=== PATIENT | male | born 1930 | race Caucasian/White ===

== ENCOUNTER 2016-04-01 10:35 | Emergency (ER) | payer MEDICARE, OTHER ==
--- NOTE | 2016-04-01 12:52 | RAD ---
Indication: Mechanical fall, dementia. CT of the brain was performed without IV contrast. Comparison is made with previous exam dated 09/19/2015. Ventricular structures are midline. No midline shift is noted. Central and cortical atrophy is noted. There is no evidence of intracranial bleed hemorrhage. Small calcific density just adjacent to the right sylvian fissure is consistent with a small meningioma. Calcified and measures approximately 7 mm. No other high or low density lesions are identified. There is opacification of the left maxillary sinus. Mastoid air cells are otherwise unremarkable. Overall no changes noted since 09/19/2015. IMPRESSION: No intracranial hemorrhage is noted. Likely meningioma in the right temporal lobe just adjacent to the sylvian fissure which is unchanged measuring up to 7 mm. No changes noted since 02/12/2014.
--- NOTE | 2016-04-01 12:56 | RAD ---
Indication: Fall, neck injury. CT of the cervical spine was obtained in the axial plane. Sagittal and coronal reconstructed images were obtained. The skull base demonstrates mastoid air cells to be well aerated. C1 ring is intact. The vertebral bodies appear normal in height. At C2-C3 minimal broad-based protrusion flattens the thecal sac. No central foraminal stenosis is noted. At C3-4 spondylitic ridge is noted. Left uncovertebral hypertrophy narrows the left foramen. Facet arthropathy is noted. At C4-5 spondylitic ridge with broad-based protrusion, right uncovertebral joint hypertrophy and right facet arthropathy throughout the right foramen. At C5-6 spondylitic ridge flattens the thecal sac. No central foraminal stenosis is noted. At C6-7 and C7-T1 degenerative disc disease without fracture noted. The remainder of the thoracic vertebra were visualized is unremarkable. Oblique IMPRESSION: DEGENERATIVE DISC DISEASE AT MULTIPLE LEVELS WITHOUT EVIDENCE OF FRACTURE. OVERALL NO CHANGES NOTED SINCE PREVIOUS EXAM.
[2016-04-01 13:10] LABS: Hematocrit 41 % (42-52); Hemoglobin 13.7 g/dl (14.0-18.0); Mean Corpuscular HGB Conc 33 g/dl (31-36); Mean Corpuscular Hemoglobin 29 pg (27-31); Mean Corpuscular Volume 86 fL (80-94); Mean Platelet Volume 8 um3 (7.4-10.4); Red Blood Count 4.81 10^6/ul (4.0-5.4); Red Cell Distribution Width 15 % (10.5-15); White Blood Count 8.2 10^3/ul (3.5-10.8)
--- NOTE | 2016-04-01 13:21 | RAD ---
INDICATION: Mechanical fall. Dementia. COMPARISON: Chest x-ray September 19, 2015 TECHNIQUE: An AP portable view obtained at 1305 hours is submitted. FINDINGS: Bones/Soft Tissues: There are no acute bony findings. There are old right-sided rib fractures Cardiomediastinal: The cardiomediastinal silhouette is normal. Lungs: There are no infiltrates. Pleura: There are no pleural effusions. There is minimal chronic blunting of the left costophrenic angle Other: None IMPRESSION: NO ACTIVE DISEASE.
[2016-04-01 13:31] LABS: Albumin 3.8 g/dL (3.2-5.2); BUN/Creatinine Ratio 21.6 (8-20); C Reactive Protein 23.99 mg/L (< 5.00); Calcium 9.4 mg/dL (8.6-10.3); EGFR Non-African American 59.8 (>60); Globulin 2.9 g/dL (2-4); Magnesium 2.1 mg/dL (1.9-2.7); Potassium 4.1 mmol/L (3.5-5.0); Total Bilirubin 0.8 mg/dL (0.2-1.0); Total Protein 6.7 g/dL (6.4-8.9)
--- NOTE | 2016-04-01 15:43 | ED ---
Complex/Multi-Sys Presentation - HPI Summary HPI Summary: Patient is an 85yo non-verbal male with dementia from an assisted living facility arrives with physical therapy assistant instructor stating CC of fall from bed. No one witness the fall, but staff immediately were present after hearing a "thud." Patient was alert and awake when techs arrived. They mention he was at his baseline of confusion and dementia and did not complain of pain. However, on further inspection, he was noted to have abrasions on L and R forearms and small contusion over L hip. Otherwise gait normal. Techs then began to notice he was more sleepy than usual and brought him to ED for further evaluation. - History Of Current Complaint Chief Complaint: EDGeneral Time Seen by Provider: 04/01/16 10:45 Hx Obtained From: Family/Chief Resource Officer Hx From Patient Unobtainable Due To: Dementia Onset/Duration: Sudden Onset Timing: Constant Severity Currently: Mild Severity Initially: Mild Associated Signs And Symptoms: Positive: Recent Trauma - fall from bed - Allergies/Home Medications Allergies/Adverse Reactions: Allergies Allergy/AdvReac Type Severity Reaction Status Date / Time Donepezil [From Aricept] Allergy Unknown Verified 10/06/15 16:13 Reaction Details Tramadol Allergy Unknown Verified 10/06/15 16:13 Reaction Details Home Medications: Home Medications HYDROcodone/ACETAMIN 5-325 MG* [[place] 5-325 TAB*] 1 tab PO Q6H PRN MDD 4 tabs [History Confirmed 04/01/16] Melatonin (NF) [Meladox] 5 mg PO BEDTIME 04/01/16 [History Confirmed 04/01/16] QUEtiapine TAB* [SEROquel TAB*] 25 mg PO BID PRN 04/01/16 [History Confirmed ] QUEtiapine TAB* [SEROquel TAB*] 100 mg PO BID 04/01/16 [History Confirmed ] PMH/Surg Hx/FS Hx/Imm Hx Previously Healthy: Yes Endocrine/Hematology History: Reports: Hx Anticoagulant Therapy Denies: Hx Diabetes Cardiovascular History: Reports: Hx Hypertension, Other Cardiovascular Problems/ Disorders - Hyperlipidemia, pulmonic insuff. aortic insuff. systemic arterial HTN Denies: Hx Pacemaker/ICD Respiratory History: Reports: Hx Pulmonary Embolism Denies: Hx Asthma GI History: Reports: Hx Diverticulosis, Other GI Disorders - Ileostomy 1951, Rectum removed 1972, repeat ileostomy 2009 History: Reports: Other Problems/Disorders - Renal insuff. 2009 Sensory History: Reports: Hx Hearing Aid - DOESNT WEAR Neurological History: Reports: Hx Dementia - According to GABRIELLE Psychiatric History: Denies: Hx Panic Disorder - Surgical History Surgery Procedure, Year, and Place: ILEOSTOMY 60 YRS/REPAIR AND REPLACED/ SEVERAL BOWEL SURGERIES. 1954 COLON REMOVED, 1972 RECTUM REMOVED.SON WILL ATTEND FOR EXAM,PLEASE USE QUIET SCAN WHERE APPROPRIATE Hx Anesthesia Reactions: No - GABRIELLE reports paradoxal medication "issues" with surgery - Immunization History Date of Tetanus Vaccine: Up to date Date of Influenza Vaccine: Fall 2013 Infectious Disease History: Denies: Traveled Outside the [place] in Last 30 Days - Family History Known Family History: Positive: Hypertension - Social History Alcohol Use: None Substance Use Type: Reports: None Smoking Status (MU): Former Smoker Have You Smoked in the Last Year: No Review of Systems - ROS Summary Review of Systems Summary: Unable to obtain ROS d/t patient dementia/non-verbal. All Other Systems Reviewed And Are Negative: Yes Physical Exam Triage Information Reviewed: Yes Vital Signs On Initial Exam: Initial Vitals Temp Pulse Resp BP Pulse Ox 97.6 F 54 16 124/64 96 04/01/16 10:47 04/01/16 10:47 04/01/16 10:47 04/01/16 10:47 04/01/16 10:47 Vital Signs Reviewed: Yes Completion Of Physical Exam Limited Due To: Dementia Appearance: Positive: Well-Appearing Skin: Positive: Warm, Dry, Other - contusion over L hip measuring 2 cm; abrasion over l forearm measuring 3 cm, abrasion over R forearm measuring 2 cm Head/Face: Positive: Normal Head/Face Inspection Eyes: Positive: Normal, EOMI, KALIN, Conjunctiva Inflammed Neck: Positive: Supple, Nontender Respiratory/Lung Sounds: Positive: Clear to Auscultation, Breath Sounds Present Cardiovascular: Positive: Normal Abdomen Description: Positive: Nontender, Other: - ostomy bag Bowel Sounds: Positive: Present Musculoskeletal: Positive: Normal, Strength/ROM Intact Neurological: Positive: Normal, Sensory/Motor Intact, Facial Symmetry Psychiatric: Positive: Patient Uncooperative for Exam - d/t patient dementia/non -verbal - Maureen Coma Scale Coma Scale Total: 11 Diagnostics - Vital Signs Vital Signs Temp Pulse Resp BP Pulse Ox 04/01/16 13:00 25 13 74 04/01/16 12:00 13 128/58 04/01/16 11:30 12 132/63 04/01/16 11:00 51 13 121/57 97 04/01/16 10:53 48 15 96 04/01/16 10:52 124/64 04/01/16 10:47 97.6 F 54 16 124/64 96 - Laboratory Lab Results: Lab Results 04/01/16 04/01/16 04/01/16 Range/Units 12:57 12:57 12:57 WBC 8.2 (3.5-10.8) 10^3/ul RBC 4.81 (4.0-5.4) 10^6/ul Hgb 13.7 L (14.0-18.0) g/dl Hct 41 L (42-52) % MCV 86 (80-94) fL MCH 29 (27-31) pg MCHC 33 (31-36) g/dl RDW 15 (10.5-15) % Plt Count 102 L (150-450) 10^3/ul MPV 8 (7.4-10.4) um3 Neut % (Auto) 75.3 (38-83) % Lymph % (Auto) 14.5 L (25-47) % Cavalier % (Auto) 7.2 (1-9) % Eos % (Auto) 2.6 (0-6) % Baso % (Auto) 0.4 (0-2) % Absolute Neuts (auto) 6.2 (1.5-7.7) 10^3/ul Absolute Lymphs (auto) 1.2 (1.0-4.8) 10^3/ul Absolute Monos (auto) 0.6 (0-0.8) 10^3/ul Absolute Eos (auto) 0.2 (0-0.6) 10^3/ul Absolute Basos (auto) 0 (0-0.2) 10^3/ul Absolute Nucleated RBC 0.02 10^3/ul Nucleated RBC % 0.2 Sodium 139 (133-145) mmol/L Potassium 4.1 (3.5-5.0) mmol/L Chloride 111 (101-111) mmol/L Carbon Dioxide 26 (22-32) mmol/L Anion Gap 2 (2-11) mmol/L BUN 25 H (6-24) mg/dL Creatinine 1.16 (0.67-1.17) mg/dL Est GFR ( Amer) 77.0 (>60) Est GFR (Non-Af Amer) 59.8 (>60) BUN/Creatinine Ratio 21.6 H (8-20) Glucose 92 (70-100) mg/dL Lactic Acid 0.9 (0.5-2.0) mmol/L Calcium 9.4 (8.6-10.3) mg/dL Magnesium 2.1 (1.9-2.7) mg/dL Total Bilirubin 0.80 (0.2-1.0) mg/dL AST 23 (13-39) U/L ALT 14 (7-52) U/L Alkaline Phosphatase 59 (34-104) U/L Total Creatine Kinase 117 (10-223) U/L C-Reactive Protein 23.99 H (< 5.00) mg/L Total Protein 6.7 (6.4-8.9) g/dL Albumin 3.8 (3.2-5.2) g/dL Globulin 2.9 (2-4) g/dL Albumin/Globulin Ratio 1.3 (1-3) Lipase 40 (11.0-82.0) U/L Result Diagrams: 04/01/16 12:57 04/01/16 12:57 Lab Statement: Any lab studies that have been ordered have been reviewed, and results considered in the medical decision making process. Complex Multi-Symp Course/Dx Course Of Treatment: Patient sent to CT spine, CT head, CXR and labs obtained. All WNL. Patient examined with limited communication and unable to assess fully based on non-verbal/dementia. Patient will be discharged back to assisted living with return precautions. - Diagnoses Differential Diagnoses/HQI/PQRI: CVA, Urinary Tract Infection Provider Diagnoses: Accident due to mechanical fall without injury Discharge - Discharge Plan Condition: Stable Disposition: HOME Referrals: Bessie Potts MD [Primary Care Provider] - Additional Instructions: If patient is exhibiting any worsening pain, develops fever, or has an unstable gait worse than his baseline, come back to ED. Images - Images Full Body (No Head): 1 - abrasion 2 - abrasion 3 - contusion
[2016-04-01 16:28] VITALS: BP 147/54
== END 2016-04-01 15:03 | disposition home or self-care (01) ==
LOC: ED 10:35
DX: S50.812A Abrasion of left forearm, initial encounter (principal); S50.811A Abrasion of right forearm, initial encounter; S70.02XA Contusion of left hip, initial encounter; W06.XXXA Fall from bed, initial encounter; Y92.199 Unspecified place in other specified residential institution as the place of occurrence of the external cause; F03.90 Unspecified dementia, unspecified severity, without behavioral disturbance, psychotic disturbance, mood disturbance, and anxiety; I10 Essential (primary) hypertension; E78.5 Hyperlipidemia, unspecified; Z86.711 Personal history of pulmonary embolism; Z87.891 Personal history of nicotine dependence; Z79.899 Other long term (current) drug therapy; M50.30 Other cervical disc degeneration, unspecified cervical region; Z88.8 Allergy status to other drugs, medicaments and biological substances
CPT/HCPCS: 36415; 70450; 71010; 72125; 80053; 82550; 83605; 83690; 83735; 85025; 86140; 99282

== ENCOUNTER 2016-04-09 07:44 | Emergency (ER) | payer MEDICARE, OTHER ==
[2016-04-09 08:05] VITALS: BP 127/74
--- NOTE | 2016-04-09 08:31 | ED ---
Adult Trauma - HPI Summary HPI Summary: Patient SUKHI from nursing facility after an unwitnessed fall. Per caregivers, patient at baseline and without complaints. Patient has dementia and non- verbal. Patient without bruising, pinpoint tenderness or obvious lesions or deformities. - History of Current Complaint Chief Complaint: EDHeadInjury Stated Complaint: FALL Time Seen by Provider: 04/09/16 08:11 Hx Obtained From: Family/Mechanic Senior, EMS Hx From Patient Unobtainable Due To: Dementia Mechanism of Injury: Fall Ambulatory at the Scene: Yes Loss of Consciousness: unsure Onset/Duration: Started Minutes Ago Onset Severity: Mild Current Severity: Mild Pain Intensity: 0 Pain Scale Used: Adult Non Verbal Similar Episode/Dx as: previous falls - Allergy/Home Medications Allergies/Adverse Reactions: Allergies Allergy/AdvReac Type Severity Reaction Status Date / Time Donepezil [From Aricept] Allergy Unknown Verified 10/06/15 16:13 Reaction Details Tramadol Allergy Unknown Verified 10/06/15 16:13 Reaction Details PMH/Surg Hx/FS Hx/Imm Hx Previously Healthy: Yes - dementia at baseline Endocrine/Hematology History: Reports: Hx Anticoagulant Therapy Denies: Hx Diabetes Cardiovascular History: Reports: Hx Hypertension, Other Cardiovascular Problems/ Disorders - Hyperlipidemia, pulmonic insuff. aortic insuff. systemic arterial HTN Denies: Hx Pacemaker/ICD Respiratory History: Reports: Hx Pulmonary Embolism Denies: Hx Asthma GI History: Reports: Hx Diverticulosis, Other GI Disorders - Ileostomy 1951, Rectum removed 1972, repeat ileostomy 2009 History: Reports: Other Problems/Disorders - Renal insuff. 2009 Sensory History: Reports: Hx Hearing Aid - DOESNT WEAR Neurological History: Reports: Hx Dementia - According to GABRIELLE Psychiatric History: Denies: Hx Panic Disorder - Surgical History Surgery Procedure, Year, and Place: ILEOSTOMY 60 YRS/REPAIR AND REPLACED/ SEVERAL BOWEL SURGERIES. 1954 COLON REMOVED, 1972 RECTUM REMOVED.SON WILL ATTEND FOR EXAM,PLEASE USE QUIET SCAN WHERE APPROPRIATE Hx Anesthesia Reactions: No - GABRIELLE reports paradoxal medication "issues" with surgery - Immunization History Date of Tetanus Vaccine: Up to date Date of Influenza Vaccine: Fall 2013 Infectious Disease History: Denies: Traveled Outside the [place] in Last 30 Days - Family History Known Family History: Positive: Hypertension - Social History Occupation: Disabled [facility] Alcohol Use: None Substance Use Type: Reports: None Smoking Status (MU): Former Smoker Have You Smoked in the Last Year: No Review of Systems - ROS Summary Review of Systems Summary: ROS unable to complete d/t non-verbal status. All Other Systems Reviewed And Are Negative: Yes Physical Exam Triage Information Reviewed: Yes Vital Signs On Initial Exam: Initial Vitals Temp Pulse Resp BP Pulse Ox 98.6 F 75 15 127/74 2 04/09/16 08:00 04/09/16 08:00 04/09/16 08:00 04/09/16 08:00 04/09/16 08:00 Vital Signs Reviewed: Yes Completion Of Physical Exam Limited Due To: Dementia Appearance: Positive: Well-Appearing, No Pain Distress Skin: Positive: Warm, Dry Head/Face: Positive: Normal Head/Face Inspection Eyes: Positive: Normal, EOMI, Conjunctiva Inflammed ENT: Positive: Pharynx normal, TMs normal Neck: Positive: Supple, Nontender, No Lymphadenopathy Respiratory/Lung Sounds: Positive: Breath Sounds Present Cardiovascular: Positive: Normal Abdomen Description: Positive: Nontender Bowel Sounds: Positive: Present Musculoskeletal: Positive: Normal, Strength/ROM Intact Neurological: Positive: Normal, Other - not oriented to time, place or person - dementia AVPU Assessment: Alert Diagnostics - Vital Signs Vital Signs Temp Pulse Resp BP Pulse Ox 04/09/16 08:00 98.6 F 75 15 127/74 2 - Laboratory Lab Statement: Any lab studies that have been ordered have been reviewed, and results considered in the medical decision making process. Adult Trauma Course/Dx - Course Course Of Treatment: physical examination performed to attempt to recreate locations of pain d/t dementia and non-verbal status. patient at baseline per senior care. CT scan of head shows no acute changes. no lesions, patient not responding negatively to physical exam. neck ROM intact. neck flexion and extension OK. extremity ROM intact. Discussed findings with children of patient. Both agree patient at baseline. Transported back to senior care via ambulance - Diagnoses Differential Diagnosis/HQI/PQRI: Positive: Fracture, Hematoma(s) Provider Diagnoses: Unwitnessed fall Discharge - Discharge Plan Condition: Stable Disposition: HOME Patient Education Materials: Fall Prevention (ED) Referrals: Bessie Potts MD [Primary Care Provider] - Additional Instructions: Return to activities as normal. Nothing noted on CT scan. If worsening pain or symptoms develop, please come back to ED.
--- NOTE | 2016-04-09 08:49 | RAD ---
HISTORY: unwitnessed fall COMPARISONS: April 01, 2016 TECHNIQUE: Multiple contiguous axial CT scans were obtained of the head without intravenous contrast. FINDINGS: HEMORRHAGE/INFARCT: There is no hemorrhage or acute infarct. MASSES/SHIFT: There is no mass or shift. EXTRA-AXIAL SPACES: Again noted is a small extra-axial high attenuation lesion suggestive of small meningioma along the right frontal lobe. This is stable. SULCI AND VENTRICLES: There is diffuse and proportional enlargement of the sulci and ventricles. CEREBRUM: There are no focal parenchymal abnormalities. BRAINSTEM: There are no focal parenchymal abnormalities. CEREBELLUM: There are no focal parenchymal abnormalities. VESSELS: The vessels are grossly normal. PARANASAL SINUSES: There is opacification of left maxillary sinus with osteitis of the sternal bone ORBITS: The orbits are unremarkable. BONES AND SOFT TISSUE: No bone or soft tissue abnormalities are noted. OTHER: None IMPRESSION: 1. NO ACUTE INTRACRANIAL PATHOLOGY. 2. DIFFUSE INVOLUTIONAL CHANGE. 3. STABLE SMALL RIGHT FRONTAL MENINGIOMA. 4. CHRONIC LEFT MAXILLARY SINUSITIS.
== END 2016-04-09 09:19 | disposition home or self-care (01) ==
LOC: ED 07:44
DX: S09.90XA Unspecified injury of head, initial encounter (principal); W19.XXXA Unspecified fall, initial encounter; Y93.9 Activity, unspecified; Y92.9 Unspecified place or not applicable; Y99.9 Unspecified external cause status; Z87.891 Personal history of nicotine dependence; F03.90 Unspecified dementia, unspecified severity, without behavioral disturbance, psychotic disturbance, mood disturbance, and anxiety; Z79.01 Long term (current) use of anticoagulants
CPT/HCPCS: 70450; 99282